=== PATIENT | female | born 1960 | race Caucasian/White ===

== ENCOUNTER 2016-11-03 02:11 | Emergency (ER) | END 2016-11-03 03:29 | disposition left against medical advice (07) | LOC: ER 02:11 | DX: Z53.21 Procedure and treatment not carried out due to patient leaving prior to being seen by health care provider (principal) ==

== ENCOUNTER 2017-11-15 20:07 | Emergency (ER) | payer MEDICARE ==
[2017-11-15 20:28] VITALS: BP 129/86
[2017-11-15] MEDS ORDERED: SILVER SULFADIAZINE 1% CREAM 400 GM TP PRN (20:56)
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
== END 2017-11-15 21:31 | disposition home or self-care (01) ==
LOC: ER 20:07
DX: T21.12XA Burn of first degree of abdominal wall, initial encounter (principal); E66.01 Morbid (severe) obesity due to excess calories; X12.XXXA Contact with other hot fluids, initial encounter
CPT/HCPCS: 99283; J3490

== ENCOUNTER 2018-03-08 08:44 | Day surgery (SDC) | payer MEDICARE ==
[~2018-03-08 08:44] MED LIST: KETOROLAC TROMETHAMINE 0.45% 4 DROP/0.4 ML DROPERETTE OD PRN
[2018-03-08] MEDS ORDERED: LIDOCAINE 1% INJ-PF (10 MG/ML) 30 ML SDV ONE (09:00)
[2018-03-08] MEDS ORDERED: EPINEPHRINE INJ/PF 1 MG/1 ML AMPULE ONE (09:00)
[2018-03-08] MEDS ORDERED: CHONDR SU A NA/HYALUR INTRAOC KIT (SURGICARE) ONE (09:00)
[2018-03-08] MEDS ORDERED: MIDAZOLAM 2 MG/2 ML INJ ONE ×2 (09:10→10:03)
[2018-03-08] MEDS: TROPICAMIDE 1% OPH SOLN 3 ML OD PRN ×3 (09:35→09:52)
[2018-03-08] MEDS: BESIFLOXACIN HCL 0.6% OPH SUSP 5 ML BOTTLE OD PRN ×3 (09:35→10:25)
[2018-03-08] MEDS: TETRACAINE HCL 0.5% OPH SOLN 2 ML OD PRN ×3 (09:35→10:02)
[2018-03-08] MEDS: CYCLOPENTOLATE 0.2%/PHENYLEPHRINE 1% OPH SOLN 2 ML OD PRN ×3 (09:35→09:52)
[2018-03-08] MEDS ORDERED: LIDOCAINE 1%/PHENYLEPHRINE 1.5% 1 ML VIAL ONE (09:51)
--- NOTE | 2018-03-08 16:16 | [facility] OPERATIVE REPORT E ---
[facility] Operative Report NAME: CLAY LOJA AGE: 57Y DATE OF SURGERY: 03/08/2018 ROOM: PREOPERATIVE DIAGNOSIS: CATARACT, RIGHT EYE. POSTOPERATIVE DIAGNOSIS: CATARACT, RIGHT EYE. OPERATION: Cataract extraction with insertion of an IOL of the right eye. SURGEON: SEAN YEBOAH M.D. ANESTHESIA: Topical. PROCEDURE: After obtaining appropriate consent, the patient's right eye was prepped and draped in sterile fashion as well as the surgeon in a sterile manner and cataract surgery was started. First a paracentesis blade was used to make a side-port incision. Viscoelastic was used to inflate the anterior chamber. Next a 2.4 mm incision was made with a 2.4 mm blade, clear corneal temporally. A continuous capsulorrhexis was made using a cystotome and Utrata forceps. Following this hydrodissection was carried out to make the lens fully loose and mobile and it was rotated 90 degrees. Following this, a pvrlod-xri-nohvhvl technique was used to phacoemulsify the lens with a CDE of 3.85. The remaining cortex was removed with irrigation/aspiration. Provisc was instilled into the capsular bag to inflate the bag. A SN60WF, 6.0 diopter lens was placed. The remaining viscoelastic material was removed with irrigation/aspiration. Following this, the incision was found to be watertight. Besivance was instilled into the eye and a protective shield was placed over the eye. The patient returned to the postoperative recovery in stable condition. DICTATING PHYSICIAN: SEAN YEBOAH M.D. [id number] PHY#: [id number] ID: [id number] JOB#: [id number] ACCT: [id number] cc:SEAN YEBOAH M.D. >
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
== END 2018-03-08 11:05 | disposition home or self-care (01) ==
LOC: SC 08:44
PROVIDERS: ATTEND Internal Medicine
DX: H25.813 Combined forms of age-related cataract, bilateral (principal); H44.23 Degenerative myopia, bilateral; H01.002 Unspecified blepharitis right lower eyelid; H01.005 Unspecified blepharitis left lower eyelid; I10 Essential (primary) hypertension; E03.9 Hypothyroidism, unspecified; E78.00 Pure hypercholesterolemia, unspecified; E11.9 Type 2 diabetes mellitus without complications; I48.91 Unspecified atrial fibrillation; Z88.5 Allergy status to narcotic agent; Z88.8 Allergy status to other drugs, medicaments and biological substances; Z79.84 Long term (current) use of oral hypoglycemic drugs; Z79.899 Other long term (current) drug therapy; Z79.01 Long term (current) use of anticoagulants
CPT/HCPCS: 66984; J2250; J3490; A9270; J0171; J2370; 142

== ENCOUNTER 2018-04-05 07:16 | Day surgery (SDC) | payer MEDICARE ==
[~2018-04-05 07:16] MED LIST changes: -KETOROLAC TROMETHAMINE 0.45% 4 DROP/0.4 ML DROPERETTE OD PRN; +KETOROLAC TROMETHAMINE 0.45% 4 DROP/0.4 ML DROPERETTE OS PRN
[2018-04-05] MEDS ORDERED: MIDAZOLAM 2 MG/2 ML INJ ONE (07:18)
[2018-04-05] MEDS ORDERED: EPINEPHRINE INJ/PF 1 MG/1 ML AMPULE ONE (07:41)
[2018-04-05] MEDS ORDERED: LIDOCAINE 1% INJ-PF (10 MG/ML) 30 ML SDV ONE (07:41)
[2018-04-05] MEDS ORDERED: CHONDR SU A NA/HYALUR INTRAOC KIT (SURGICARE) ONE (07:42)
[2018-04-05] MEDS: CYCLOPENTOLATE 0.2%/PHENYLEPHRINE 1% OPH SOLN 2 ML OS PRN ×3 (08:01→08:30)
[2018-04-05] MEDS: TROPICAMIDE 1% OPH SOLN 3 ML OS PRN ×3 (08:01→08:30)
[2018-04-05] MEDS: BESIFLOXACIN HCL 0.6% OPH SUSP 5 ML BOTTLE OS PRN ×3 (08:02→09:00)
[2018-04-05] MEDS: TETRACAINE HCL 0.5% OPH SOLN 2 ML OS PRN ×3 (08:03→08:37)
--- NOTE | 2018-04-05 23:40 | [facility] OPERATIVE REPORT E ---
[facility] Operative Report NAME: CLAY LOJA AGE: 58Y DATE OF SURGERY: 04/05/2018 ROOM: PREOPERATIVE DIAGNOSIS: CATARACT, LEFT EYE. POSTOPERATIVE DIAGNOSIS: CATARACT, LEFT EYE. OPERATION: Cataract extraction with insertion of an IOL of the left eye. SURGEON: SEAN YEBOAH M.D. ANESTHESIA: Topical. PROCEDURE: After obtaining appropriate consent, the patient's left eye was prepped and draped in sterile fashion as well as the surgeon in a sterile manner and cataract surgery was started. First a paracentesis blade was used to make a side-port incision. Viscoelastic was used to inflate the anterior chamber. Next a 2.4 mm incision was made with a 2.4 mm blade, clear corneal temporally. A continuous capsulorrhexis was made using a cystotome and Utrata forceps. Following this hydrodissection was carried out to make the lens fully loose and mobile and it was rotated 90 degrees. Following this, a nuybzc-rgz-snajrrp technique was used to phacoemulsify the lens with a CDE of 6.73. The remaining cortex was removed with irrigation/aspiration. Provisc was instilled into the capsular bag to inflate the bag. A SN60WF, 6.5 diopter lens was placed. The remaining viscoelastic material was removed with irrigation/aspiration. Following this, the incision was found to be watertight. Besivance was instilled into the eye and a protective shield was placed over the eye. The patient returned to the postoperative recovery in stable condition. DICTATING PHYSICIAN: SEAN YEBOAH M.D. [id number] [id number] Y#: 2010 2016 ID: [id number] JOB#: [id number] ACCT: [id number] cc:SEAN YEBOAH M.D. >
--- NOTE | 2018-04-05 23:40 | DISCHARGE SUMMARY E ---
Discharge Summary NAME: CLAY LOJA : 1960 AGE: 58Y ADMITTED: 04/05/2018 DISCHARGED: FINAL DIAGNOSIS: Cataract, left eye. HOSPITAL COURSE: This is a 58-year-old female who underwent cataract extraction of the left eye. She underwent surgery because she was having imbalance feeling. DISCHARGE INSTRUCTIONS: She should be on a regular diet. No bending at her waist, no heavy lifting. She should use her Besivance, Ilevro and Durezol at 3:00 p.m. and 8:00 p.m. Sleep with a rigid shield. I will see her for a 1-day postoperative tomorrow. DICTATING PHYSICIAN: SEAN YEBOAH M.D. [id number] [id number] PHY#: [id number] 2016 ID: [id number] JOB#: [id number] ACCT: [id number] cc:SEAN YBEOAH M.D. > MTDD
== END 2018-04-05 09:35 | disposition home or self-care (01) ==
LOC: SC 07:16
PROVIDERS: ATTEND Internal Medicine
DX: H25.812 Combined forms of age-related cataract, left eye (principal); Z96.1 Presence of intraocular lens; M19.90 Unspecified osteoarthritis, unspecified site; E11.9 Type 2 diabetes mellitus without complications; E07.9 Disorder of thyroid, unspecified; I10 Essential (primary) hypertension; E66.9 Obesity, unspecified; Z79.01 Long term (current) use of anticoagulants; Z79.84 Long term (current) use of oral hypoglycemic drugs; Z88.5 Allergy status to narcotic agent; Z68.43 Body mass index [BMI] 50.0-59.9, adult
CPT/HCPCS: 66984; 82962; C1713; J2250; J3490 ×2; A9270; J0171; 142